=== PATIENT | male | born 1985 | race Caucasian/White ===

== ENCOUNTER 2017-01-17 18:13 | Emergency (ER) | payer OTHER ==
[~2017-01-17] VITALS: Ht 175.3 cm; Wt 77.1 kg
[2017-01-17 18:42] VITALS: BP 125/82
== END 2017-01-17 19:20 | disposition home or self-care (01) ==
LOC: ER 18:15
DX: S90.512A Abrasion, left ankle, initial encounter (principal); Z88.1 Allergy status to other antibiotic agents; X58.XXXA Exposure to other specified factors, initial encounter; Y92.89 Other specified places as the place of occurrence of the external cause; Y93.89 Activity, other specified; Y99.8 Other external cause status
CPT/HCPCS: A4606; Z7502; Z7610

== ENCOUNTER 2018-02-03 04:43 | Emergency (ER) | payer OTHER ==
[~2018-02-03] VITALS: Ht 170.2 cm; Wt 79.4 kg
--- NOTE | 2018-02-03 04:43 | NUR ---
BIBSELF C/O LEFT 3RD DIGIT FINGER PAIN 10/10 AND SWELLING SINCE YESTERDAY. NO SOB. VSS NAD A/OX4. WILL CONTINUE TO MONITOR FOR ANY CHANGES DURING THE SHIFT.
--- NOTE | 2018-02-03 04:50 | NUR ---
ER MD CULLEN AT BEDSIDE
[2018-02-03] MEDS ORDERED: CEFTRIAXONE 1 G VIAL IM ONE (05:00)
[2018-02-03] MEDS ORDERED: SULFAMETH/TRIMETH 800/160 MG 1 UDTAB TABLET PO ONE ×2 (05:00→05:01)
[2018-02-03] MEDS ORDERED: CEFTRIAXONE 1 G VIAL ONE (05:01)
[2018-02-03 05:33] VITALS: BP 124/73
== END 2018-02-03 05:34 | disposition home or self-care (01) ==
LOC: ER 04:44
DX: L03.012 Cellulitis of left finger (principal); Z88.1 Allergy status to other antibiotic agents
CPT/HCPCS: 96372; 99283; A4606; J0696; Z7610

== ENCOUNTER 2020-11-27 14:18 | Emergency (ER) | payer OTHER ==
[~2020-11-27] VITALS: Ht 167.6 cm; Wt 70.3 kg
[2020-11-27 14:26] VITALS: BP 134/81
[2020-11-27] MEDS ORDERED: IBUP-1955 PO (14:50)
== END 2020-11-27 15:53 | disposition home or self-care (01) ==
LOC: ER 14:20
DX: S62.614A Displaced fracture of proximal phalanx of right ring finger, initial encounter for closed fracture (principal); Z98.890 Other specified postprocedural states; Z88.1 Allergy status to other antibiotic agents; Z60.2 Problems related to living alone; Z79.899 Other long term (current) drug therapy; W05.1XXA Fall from non-moving nonmotorized scooter, initial encounter; Y93.89 Activity, other specified; Y92.89 Other specified places as the place of occurrence of the external cause; Y99.8 Other external cause status
CPT/HCPCS: 73140-TC